=== PATIENT | male | born 1970 | race Hispanic/Latino ===

== ENCOUNTER 2023-12-06 16:30 | Emergency (ER) | payer SELFPAY ==
[2023-12-06 16:32] VITALS: BP 122/77
[2023-12-06 17:08] LABS: % Basophils 0.6 % (0-2); % Eosinophils 3.1 % (0-6); % Immature Granulocytes 0.1 % (0-0.5); % Lymphocytes 35.7 % (20.5-51.1); % Neutrophils 54.5 % (42.2-75.2); Absolute Eosinophils 0.2 10^3/uL (0-0.7); Absolute Lymphocytes 2.5 10^3/uL (1.2-3.4); Absolute Monocytes 0.4 10^3/uL (0.1-0.6); Absolute Neutrophils 3.9 10^3/uL (1.4-6.5); Hemoglobin 14.9 g/dL (13.0-18.0); Mean Corp Hgb Conc. 37.3 g/dL (33.0-37.0); Mean Corpuscular Hgb 32.7 pg (27.0-31.0); Mean Corpuscular Volume 87.9 fL (80.0-94.0); Mean Platelet Volume 9.6 fL (7.4-10.4); Nucleated Red Blood Cells % 0 % (-); Platelet Count 251 10^3/uL (130-400); Red Blood Cell Count 4.55 10^6/uL (4.70-6.10); White Blood Cell Count 7.1 10^3/uL (4.8-10.8)
[2023-12-06 17:18] LABS: ALT (SGPT) 45 U/L (0-50); AST (SGOT) 40 U/L (17-59); Albumin 4.6 g/dl (3.5-5.0); Alkaline Phosphatase 69 U/L (38-126); Blood Urea Nitrogen 18 mg/dl (9-20); Calcium 9.5 mg/dl (8.4-10.2); Carbon Dioxide 20 mmol/L (22-30); Chloride 109 mmol/L (98-107); Glucose 110 mg/dl (70-99); Potassium 3.9 mmol/L (3.5-5.1); Sodium 139 mmol/L (135-145); Total Bilirubin 1.4 mg/dl (0.2-1.3); Total Protein 7.5 g/dl (6.3-8.2); eGFR > 60.00
[2023-12-06 17:23] LABS: Troponin I < 0.012 ng/ml
[2023-12-06 17:49] LABS: TSH Reflex To Free T4 2.47 uIU/ml (0.47-4.68)
--- NOTE | 2023-12-06 18:18 | ED.GENMED ---
History of Present Illness
<Jose Meraz DO, Resident - Last Filed: 12/06/23 18:34>
General
Chief Complaint: Heart Rate Problem
Source: patient and family
Time Seen by Provider: 12/06/23 18:07
History of Present Illness
History of Present Illness:
Patient is a 53-year-old male presenting to the ED with shortness of breath and chest palpitations that have now resolved. Family states that he has a history of anxiety and panic attacks and today at a [facility] he felt like his chest
started to tighten and he was having difficulty breathing. At that time his heart rate was 111. He states that he has no headaches, no nausea, no vomiting, no diarrhea, no shortness of breath, no abdominal pain or numbness or tingling. He states
he has mild chest pain still.
Review of Systems
<Jose Meraz DO, Resident - Last Filed: 12/06/23 18:34>
Review of Systems
Constitutional: Reports no symptoms
EENT: Reports no symptoms
Respiratory: Reports trouble breathing
Cardiac: Reports chest pain and palpitations
ABD/GI: Reports no symptoms
: Reports no symptoms
Musculoskeletal: Reports no symptoms
Skin: Reports no symptoms
Neurological: Reports no symptoms
Psychiatric: Reports anxiety
Phy Exam
<Jose Meraz DO, Resident - Last Filed: 12/06/23 18:34>
General Physical Exam
General Presentation: well appearing and no apparent distress
General age: appears stated age
General Skin: warm and dry
General Habitus: normal
General Mental: alert
General Hydration: appears well hydrated
Cardiovascular Exam
Cardiovascular Exam: regular rate/rhythm, no edema, no gallop, no JVD, no murmur and normal peripheral pulses
Pulmonary Exam
Pulmonary Exam: lungs clear, no respiratory distress, no rales, chest non tender, no crackles, no rhonchi, no stridor, no wheezing and no cough
Gastrointestinal Exam
Gastrointestinal Exam: normal bowel sounds, non tender, soft, no organomegaly, no pulsatile mass, non distended and no cva tenderness
Musculoskeletal Exam
Musculoskeletal Exam: full ROM
Skin Exam
Skin Exam: normal color and warm/dry
Course
<Jose Meraz DO, Resident - Last Filed: 12/06/23 18:34>
Orders/Labs/Results
Orders:
Orders
12/06/23 16:37
ECG [Electrocardiogram (*1)] Urgent
Reason for Study: Palpitations
Other Reason for Exam: chest tightness
12/06/23 16:38
EKG- Treatment ONCE
12/06/23 16:49
Complete Blood Count/With Diff Urgent
Comprehensive Metabolic Panel Urgent
TSH Reflex To Free T4 Urgent
Troponin I Urgent
Abnormal Lab Results
12/06/23
16:49
RBC 4.55 L 10^6/uL
(4.70-6.10)
MCH 32.7 H pg
(27.0-31.0)
MCHC 37.3 H g/dL
(33.0-37.0)
Chloride 109 H mmol/L
(98-107)
Carbon Dioxide 20 L mmol/L
(22-30)
Glucose 110 H mg/dl
(70-99)
Total Bilirubin 1.4 H mg/dl
(0.2-1.3)
12/06/23 16:49
12/06/23 16:49
Vital Signs
Initial and Last Documented VS:
Initial Vital Signs
Temp Pulse Resp BP Pulse Ox
98.6 F 72 16 122/77 99
12/06/23 16:32 12/06/23 16:32 12/06/23 16:32 12/06/23 16:32 12/06/23 16:32
Last Documented Vital Signs
Temp Pulse Resp BP Pulse Ox
98.6 F 63 19 122/77 98
12/06/23 16:32 12/06/23 18:21 12/06/23 18:21 12/06/23 16:32 12/06/23 18:21
<Idris Osman, DO - Last Filed: 12/06/23 18:36>
Orders/Labs/Results
Orders:
Orders
12/06/23 16:37
ECG [Electrocardiogram (*1)] Urgent
Reason for Study: Palpitations
Other Reason for Exam: chest tightness
12/06/23 16:38
EKG- Treatment ONCE
12/06/23 16:49
Complete Blood Count/With Diff Urgent
Comprehensive Metabolic Panel Urgent
TSH Reflex To Free T4 Urgent
Troponin I Urgent
Abnormal Lab Results
12/06/23
16:49
RBC 4.55 L 10^6/uL
(4.70-6.10)
MCH 32.7 H pg
(27.0-31.0)
MCHC 37.3 H g/dL
(33.0-37.0)
Chloride 109 H mmol/L
(98-107)
Carbon Dioxide 20 L mmol/L
(22-30)
Glucose 110 H mg/dl
(70-99)
Total Bilirubin 1.4 H mg/dl
(0.2-1.3)
12/06/23 16:49
12/06/23 16:49
Vital Signs
Initial and Last Documented VS:
Initial Vital Signs
Temp Pulse Resp BP Pulse Ox
98.6 F 72 16 122/77 99
12/06/23 16:32 12/06/23 16:32 12/06/23 16:32 12/06/23 16:32 12/06/23 16:32
Last Documented Vital Signs
Temp Pulse Resp BP Pulse Ox
98.6 F 63 19 122/77 98
12/06/23 16:32 12/06/23 18:21 12/06/23 18:21 12/06/23 16:32 12/06/23 18:21
<Jose Meraz DO, Resident - Last Filed: 12/06/23 18:34>
MDM/Problems Addressed
Differential Diagnosis Includes:
Chest palpitations
MDM/Problems Addressed:
Patient is a 53-year-old male presenting to the ED after an episode of palpitations and shortness of breath, now resolved. He is stable. Heart rate is 72. Patient is to follow-up with a primary care physician on Saturday. Patient was educated
to discuss palpitations with physician as well as consideration of a Holter monitor for cardiac monitoring.
Chronic conditions affecting care:
NA
Acute Exacerbation and/or Progression of Chronic Illness:
NA
<Jose Meraz DO, Resident - Last Filed: 12/06/23 18:34>
*Pulse Oximetry
Patient hypoxic: no
*EKG
Interpreted by ED Provider?: Yes
EKG Intrepretation Date: 12/06/23
Interpretation: normal
Comparison EKG: no comparison EKG present
Rate: normal
Rhythm: sinus
[place]: normal axis
Interval: normal interval
QRS Pattern: normal QRS
Ischemia: no ischemia
*Flap Maker Interpretation
Rate: normal
Interpretation: normal
Heart Rate: 63
Rhythm: sinus
*Critical Care Note
Total Time (30-74mins, 75-104mins- exclusive of procedures): Not Applicable
ED Attending Note
<Jose Meraz DO, Resident - Last Filed: 12/06/23 18:34>
-
Portions of this chart may have been created with voice recognition software.� Occasional wrong word or��sound alike� substitutions may have occurred due to the inherent limitations of voice recognition software.
<Idris Osman, DO - Last Filed: 12/06/23 18:36>
ED Attending Note
Patient seen and examined by attending physician: Yes
I performed a history and physical exam of patient and discussed management with resident, I reviewed resident's note and agree with documented findings and plan of care.: Yes
ED Attending Note:
I have seen and evaluated the patient with a [id number] encounter. I have spoken to the resident and involved in the medical history, the physical exam, medical decision making.
Evaluation and management service: agree unless noted differently below.
Results interpretation: agree unless noted differently below.
Focused HPI: 53-year-old male presenting for evaluation of palpitations. Patient does acknowledge that he has a history of anxiety and thought it could be anxiety related
Physical exam: Sitting in bed comfortably. Heart regular rate and rhythm. No leg edema
Medical Decision Making: EKG nonischemic and regular rhythm. Blood work within normal limits. We did discuss the possibility of his palpitations being A-fib. He has appointment on Saturday for follow-up. Discussed talking to his doctor about
possible Holter monitor
Discharge Plan
Departure
Discharge Problem:
Heart palpitations
Interventions
Interventions:
*Risk Screen - Suicide Last Done: 12/06/23 18:22
*General Assessment Last Done: 12/06/23 18:22
*Neglect/Abuse Screening Last Done: 12/06/23 18:22
ED- Fall Risk Assessment Last Done: 12/06/23 18:22
ED- Cardiac Assessment Last Done: 12/06/23 18:22
ED- Pulmonary Assessment Last Done: 12/06/23 18:22
Discharge Date and Time
Print Language: ANDORRAN
== END 2023-12-06 18:48 | disposition home or self-care (01) ==
LOC: EMR 16:30
PROVIDERS: Emergency Medicine; EMERGENCY PHYSICIAN Student in an Organized Health Care Education/Training Program
DX: R00.2 Palpitations (principal)
CPT/HCPCS: 99283; 80053; 84443; 84484; 85025; 93005